=== PATIENT | male | born 1950 | race Caucasian/White ===

== ENCOUNTER 2018-08-29 14:35 | Emergency (ER) | payer MEDICARE, BC ==
[2018-08-29] MEDS: KETOROLAC 30 MG INJ IM (16:04)
[2018-08-29] MEDS: DEXAMETHASONE 10 MG/ML 1 ML INJ IM (16:04)
== END 2018-08-29 17:02 | disposition home or self-care (01) ==
LOC: FTE 14:35
DX: M54.42 Lumbago with sciatica, left side (principal); E11.9 Type 2 diabetes mellitus without complications; I10 Essential (primary) hypertension
CPT/HCPCS: 96372; 99284-25